=== PATIENT | female | born 1990 | race Caucasian/White ===

== ENCOUNTER 2016-06-05 04:06 | Emergency (ER) | payer BC ==
[2016-06-05 04:13] VITALS: TEMP 97.3
[2016-06-05] MEDS ORDERED: HYDROmorphONE/DILAUDID 1 MG/ML SYR IVP ONE (04:31)
[2016-06-05] MEDS ORDERED: ONDANSETRON 4 MG/2 ML VIAL IVP ONE (04:31)
[2016-06-05] MEDS ORDERED: FAMOTIDINE 20 MG/NACL 50 ML IV ONE (04:31)
[2016-06-05] MEDS ORDERED: NS 1,000 ML IV ONE (04:31)
--- NOTE | 2016-06-05 04:37 | EDPHY ---
H & P Time Seen by Provider: 06/05/16 04:25 HPI/ROS: HPI Abdominal pain, vomiting. 25-year-old female by private vehicle with her sister. Patient reports that she has had issues with her stomach all of her life. She reports problems with constipation as well as food sensitivities and issues with digestion. She reports that for the last several days she has had intermittent cramping throughout her stomach after she eats. She reports that yesterday evening and this morning she has at intermittent mid abdominal cramping. She reports she has been constipated and has used laxatives as well as drinking prune juice today. She reports that she did have a large bowel movement prior to arrival and feels better. She reports that she woke however with intense mid abdominal cramping abdominal discomfort and had nausea with 1 episode of nonbilious nonbloody vomiting. She then had a bowel movement. ROS: Constitutional: No fever, no chills. No weakness. Eyes: No discharge. No changes in vision. ENT: No sore throat. No nasal congestion or rhinorrhea. Respiratory: No cough. No shortness of breath. Cardiac: No chest pain, no palpitations. Gastrointestinal: As above, no diarrhea. Genitourinary: No hematuria. No dysuria or increased frequency with urination. Musculoskeletal: No back pain. No neck pain. No myalgias or arthralgias. Skin: No rashes. Neurological: No headache. No focal weakness or altered sensation. Past medical history: As above. Appendectomy. Social history: Here with her sister. Physical Exam: General Appearance: Alert, no distress. This patient is responding to questions appropriately and in full sentences. This patient appears well- hydrated and well-nourished. Eyes: Pupils equal and round no pallor or injection. No lid edema, erythema or injection. Respiratory: There are no retractions, lungs are clear to auscultation with good air movement bilaterally. Cardiovascular: Regular rate and rhythm. No murmur. Gastrointestinal: Abdomen is soft with mild right adnexal tenderness on palpation, laparoscopic surgical scars from prior appendectomy, no masses, bowel sounds normal. No focal tenderness at McBurney's point. No Jin sign. Neurological: Motor sensory function is grossly intact. Cranial nerves are normal. Gait is normal. Skin: Warm and dry, no rashes. Musculoskeletal: Neck is supple and nontender. Extremities are symmetrical. All joints range without pain or impingement. Psychiatric: No agitation. No depression. Database: EKG: Imaging: Upright abdominal x-ray: Constipation. No free air. No obstructive pattern. Interpreted by me. Pelvic ultrasound: Good blood flow to both ovaries. Otherwise normal study. Results were discussed with staff radiologist Dr. Frank Tabares. Procedures: Emergency department course: IV placed. She was started on IV normal saline with 1 L to be given over the next hour. She was initially given 0.5 mg of IV hydromorphone, 20 mg of IV Pepcid and 4 mg of IV Zofran. 5:40 a.m., patient re-evaluated. Resting comfortably at this time. She has been tolerating oral fluids without issue. Results of her imaging as well as blood work and urinalysis were discussed with her. Repeat abdominal exam she is soft, nontender nondistended. I discussed treatment of her constipation with magnesium citrate. I also recommended a gastroenterology follow-up for evaluation of her chronic digestive problems an constipation. I will also place her on a proton pump inhibitor. She feels comfortable with this plan. Return to emergency department precautions were reviewed with her. All of her questions were answered. She was discharged in good condition with her sister who is driving. Differential Diagnosis: The differential diagnosis on this patient includes but is not limited to constipation, enteritis, gastritis, ovarian cyst. Appendicitis, bowel obstruction, cholecystitis, hepatitis, ovarian torsion unlikely. This represents a partial list of diagnoses considered. These considerations are based on history, physical exam, past history, reassessment and diagnostic testing. Smoking Status: Current some day smoker Constitutional: Initial Vital Signs Temperature (C) 36.3 C 06/05/16 04:09 Heart Rate 77 06/05/16 04:09 Respiratory Rate 16 06/05/16 04:09 Blood Pressure 139/89 H 06/05/16 04:09 O2 Sat (%) 97 06/05/16 04:09 O2 Delivery Mode Room Air Allergies/Adverse Reactions: No Known Allergies Allergy (Unverified 06/05/16 04:14) Home Medications: Medication Instructions Recorded [place] 24 Fe Tablet 06/05/16 Ondansetron Odt [Zofran Odt 4 mg 4 mg PO Q4PRN PRN #10 tab 06/05/16 (*)] Pantoprazole Sodium [Protonix] 40 mg PO DAILY #30 tab 06/05/16 Xanax 06/05/16 Medical Decision Making - Data Points Laboratory Results: Laboratory Results 06/05/16 04:30 06/05/16 04:30 06/05/16 04:30 WBC 6.02 10^3/uL (3.80-9.50) RBC 4.34 10^6/uL (4.18-5.33) Hgb 14.4 g/dL (12.6-16.3) Hct 42.5 % (38.0-47.0) MCV 97.9 fL (81.5-99.8) MCH 33.2 pg (27.9-34.1) MCHC 33.9 g/dL (32.4-36.7) RDW 12.3 % (11.5-15.2) Plt Count 249 10^3/uL (150-400) MPV 10.9 fL (8.7-11.7) Neut % (Auto) 33.9 L % (39.3-74.2) Lymph % (Auto) 52.0 H % (15.0-45.0) [place] % (Auto) 11.3 % (4.5-13.0) Eos % (Auto) 2.0 % (0.6-7.6) Baso % (Auto) 0.5 % (0.3-1.7) Nucleat RBC Rel Count 0.0 % (0.0-0.2) Absolute Neuts (auto) 2.04 10^3/uL (1.70-6.50) Absolute Lymphs (auto) 3.13 H 10^3/uL (1.00-3.00) Absolute Monos (auto) 0.68 10^3/uL (0.30-0.80) Absolute Eos (auto) 0.12 10^3/uL (0.03-0.40) Absolute Basos (auto) 0.03 10^3/uL (0.02-0.10) Absolute Nucleated RBC 0.00 10^3/uL (0-0.01) Immature Gran % 0.3 % (0.0-1.1) Immature Gran # 0.02 10^3/uL (0.00-0.10) Sodium 142 mEq/L (134-144) Potassium 4.7 mEq/L (3.5-5.2) Chloride 108 mEq/L (97-110) Carbon Dioxide 23 mEq/l (22-31) Anion Gap 11 mEq/L (8-16) BUN 13 mg/dL (7-23) Creatinine 0.9 mg/dL (0.6-1.0) Estimated GFR > 60 Glucose 85 mg/dL (70-100) Calcium 9.6 mg/dL (8.5-10.4) Total Bilirubin 0.5 mg/dL (0.1-1.4) Conjugated Bilirubin 0.3 mg/dL (0.0-0.5) Unconjugated Bilirubin 0.2 mg/dL (0.0-1.1) AST 33 IU/L (14-46) ALT 38 IU/L (9-52) Alkaline Phosphatase 39 IU/L (38-126) Total Protein 7.6 g/dL (6.3-8.2) Albumin 4.5 g/dL (3.5-5.0) Lipase 178.0 IU/L (23-300) Beta HCG, Qual NEGATIVE Urine Color YELLOW Urine Appearance CLEAR Urine pH 5.0 (5.0-7.5) Ur Specific [place] 1.017 (1.002-1.030) Urine Protein NEGATIVE (NEGATIVE) Urine Ketones NEGATIVE (NEGATIVE) Urine Blood NEGATIVE (NEGATIVE) Urine Nitrate NEGATIVE (NEGATIVE) Urine Bilirubin NEGATIVE (NEGATIVE) Urine Urobilinogen NEGATIVE EU (0.2-1.0) Ur Leukocyte Esterase NEGATIVE (NEGATIVE) Urine RBC 1-3 /hpf (0-3) Urine WBC 1-3 /hpf (0-3) Ur Epithelial Cells TRACE /lpf (NONE-1+) Urine Mucus TRACE /lpf (NONE-1+) Ur Culture Indicated? NOT INDICATED (NI) Urine Glucose NEGATIVE (NEGATIVE) Medications Given: Discontinued Medications Hydromorphone HCl (Dilaudid) 0.5 mg IVP EDNOW ONE Stop: 06/05/16 04:32 Last Admin: 06/05/16 04:42 Dose: 0.5 mg Sodium Chloride (Ns) 1,000 mls @ 0 mls/hr IV ONCE ONE PRN Reason: Wide Open Stop: 06/05/16 04:32 Last Admin: 06/05/16 04:39 Dose: 1,000 mls Famotidine/Sodium Chloride (Pepcid 20 Mg (Premix)) 50 mls @ 200 mls/hr IV EDNOW ONE Stop: 06/05/16 04:45 Last Admin: 06/05/16 04:46 Dose: 50 mls Ondansetron HCl (Zofran) 4 mg IVP EDNOW ONE Stop: 06/05/16 04:32 Last Admin: 06/05/16 04:40 Dose: 4 mg Departure - Departure Disposition: Home, Routine, Self-Care Clinical Impression: Constipation, Abdominal discomfort Condition: Good Instructions: Constipation (ED), High Fiber Diet (ED) Additional Instructions: Read and follow provided instructions. Follow-up with automatic line set up mechanic, this week for re-evaluation and ongoing management of your gastrointestinal issues. Magnesium citrate: Drink near bathroom for treatment of constipation. Take medication as prescribed. Return to the emergency department for worsening abdominal pain, vomiting and inability to keep fluids down, fever or other serious concerns. Referrals: NONE *PRIMARY CARE P,. [Primary Care Provider] - As per Instructions Prescriptions: Pantoprazole Sodium [Protonix] 40 mg PO DAILY #30 tab Ondansetron Odt [Zofran Odt 4 mg (*)] 4 mg PO Q4PRN PRN #10 tab PRN Reason: For Nausea & Vomiting
[2016-06-05 04:58] LABS: % IMMATURE GRANULYOCYTES 0.3 % (0.0-1.1); ABSOLUTE IMMATURE GRANULOCYTES 0.02 10^3/uL (0.00-0.10); ADD DIFF? NO; ADD MORPH? NO; ADD SCAN? NO; ATYPICAL LYMPHOCYTE FLAG 10 (0-99); FRAGMENT RBC FLAG 0 (0-99); HEMATOCRIT 42.5 % (38.0-47.0); HEMOGLOBIN 14.4 g/dL (12.6-16.3); LEFT SHIFT FLG 0 (0-99); LIPEMIA HEMOLYSIS FLAG 90 (0-99); MEAN CELL HEMOGLOBIN 33.2 pg (27.9-34.1); MEAN CELL HEMOGLOBIN CONCENTR. 33.9 g/dL (32.4-36.7); MEAN CELL VOLUME 97.9 fL (81.5-99.8); MEAN PLATELET VOLUME 10.9 fL (8.7-11.7); PLATELET CLUMPS FLAG 10 (0-99); PLATELET COUNT 249 10^3/uL (150-400); RED BLOOD CELL COUNT 4.34 10^6/uL (4.18-5.33); RED CELL DISTRIBUTION WIDTH 12.3 % (11.5-15.2)
[2016-06-05 05:03] LABS: ALANINE AMINOTRANSFERASE 38 IU/L (9-52); ALBUMIN 4.5 g/dL (3.5-5.0); ALKALINE PHOSPHATASE 39 IU/L (38-126); ANION GAP 11 mEq/L (8-16); ASPARTATE AMINOTRANSFERASE 33 IU/L (14-46); BILIRUBIN,TOTAL 0.5 mg/dL (0.1-1.4); BILIRUBIN-CONJUGATED 0.3 mg/dL (0.0-0.5); BILIRUBIN-UNCONJUGATED 0.2 mg/dL (0.0-1.1); CALCIUM 9.6 mg/dL (8.5-10.4); CARBON DIOXIDE 23 mEq/l (22-31); CHLORIDE 108 mEq/L (97-110); CREATININE 0.9 mg/dL (0.6-1.0); GLOMERULAR FILTRATION RATE > 60; GLUCOSE 85 mg/dL (70-100); POTASSIUM 4.7 mEq/L (3.5-5.2); SODIUM 142 mEq/L (134-144); TOTAL PROTEIN 7.6 g/dL (6.3-8.2)
[2016-06-05 05:12] LABS: COLOR YELLOW; LEUKOCYTE ESTERASE,URINE NEGATIVE (NEGATIVE); NITRITE,URINE NEGATIVE (NEGATIVE)
[2016-06-05 05:13] LABS: MUCUS TRACE /lpf (NONE-1+)
[2016-06-05] MEDS ORDERED: ONDANSETRON 4MG PREPACK#2 BTL TAKEHOME ONE (05:45)
[2016-06-05] MEDS ORDERED: MAGNESIUM CITRATE 300 ML BOTTLE PO ONE (05:46)
[2016-06-05] MEDS ORDERED: MAGNESIUM CITRATE 300 ML BOTTLE ONE (05:47)
[2016-06-05 05:59] VITALS: BP 117/63; PULSE 69; RESP 18; O2SAT 94
--- NOTE | 2016-06-05 06:30 | US ---
Transabdominal and Transvaginal Pelvic Ultrasound History: Pelvic pain for one week. Comparison: None available. Findings: Transabdominal: The uterus measures 6.8 x 2.6 x 4.1 cm. The bladder is normal. Transvaginal: The uterus is retroverted. The endometrium is homogeneous and measures 2 mm. There is t race fluid in the endocervical canal versus a tiny endometrial cyst. The left ovary measures 1.6 x 2. 5 x 1.1 cm. The right ovary measures 3.4 x 1.4 x 1.7 cm. No adnexal masses are identified. Normal art erial blood flow is documented to both ovaries by Doppler ultrasound. There is trace free fluid. Impression: No acute findings in the pelvis. Findings discussed with Dr. Mina Tabor today at 550 hours. The preliminary and final report s were concordant.
--- NOTE | 2016-06-05 08:59 | DX ---
AP Upright Abdomen, Single View at 4:11 AM Clinical History: 25-year-old female with abdominal pain. Comparison Study: None. Findings: There is air and fecal material throughout portions of the colon. There is no abnormal smal l bowel dilatation. There is a small air-fluid level seen in the stomach. There is no free air under the diaphragms. There is no apparent organomegaly. The lung bases are clear. The osseous structures a re age-appropriate. The caudal margin of the pelvis has been excluded, including the symphysis pubis. There are no abnormal calcific radiodensities. Impression: [id number] constipation. If there is progression of the patient's symptoms, CT imaging could be considered.
== END 2016-06-05 05:59 | disposition home or self-care (01) ==
DX: K59.00 Constipation, unspecified (principal)
CPT/HCPCS: 96365; J1170; J2405